=== PATIENT | female | born 1965 | race Caucasian/White ===

== ENCOUNTER → 2022-02-21 12:26 | Outpatient (CLI) | payer BC, SELFPAY ==
--- NOTE | ~2022-02-21 | XR_ITS ---
XR hand RT min 3V DATE: 02/21/2022 13:02 INDICATION: Bilateral hand pain TECHNIQUE: 3 views of right hand COMPARISON: None FINDINGS: There is polyarticular osteoarthritis including first carpometacarpal joint and to a greate r extent the interphalangeal joints, including the interphalangeal joint of the first digit and dista l phalangeal joint of the second digit in particular. No fracture or dislocation, periosteal reaction or bone destruction. No erosive change or chondrocalc inosis. IMPRESSION: Polyarticular osteoarthritis Reviewed, dictated and finalized at location B.
--- NOTE | ~2022-02-21 | XR_ITS ---
XR hand LT min 3V DATE: 02/21/2022 13:02 INDICATION: Bilateral hand pain TECHNIQUE: 3 views of left hand COMPARISON: None FINDINGS: There is a slightly anteriorly displaced transverse fracture of the tuft of the distal phal anx of the third digit. There is mild polyarticular osteoid arthritis including first carpometacarpal joint and multiple inte rphalangeal joints. No other fracture or dislocation, periosteal reaction or bone destruction, erosive change or chondroc alcinosis. IMPRESSION: Fracture of tuft of distal phalanx of third digit Mild polyarticular osteoarthritis Reviewed, dictated and finalized at location B.
--- NOTE | ~2022-02-21 | XR_ITS ---
XR_CERV2-3V_CR DATE: 02/21/2022 13:02 INDICATION: Chronic neck pain TECHNIQUE: AP, open-mouth and lateral views COMPARISON: None FINDINGS: There is reversal of cervical curvature which may be due to muscle spasm. There is minimal anterolisthesis at C2-3, C3-4 and C4-5. Prominent uncovertebral joint spurring is noted on the right at C5-6. There is mild degenerative disc disease at C4-5 and C6-7. There is moderately severe degenerative dis c disease at C5-6. C1 and C2 are normally aligned and the odontoid process is intact. No fracture or dislocation or lock ed facet or prevertebral soft tissue swelling is detected. IMPRESSION: Reversal of cervical curvature Minimal anterolisthesis at C2-3, C3-4 and C4-5 Multilevel degenerative disc disease, greatest at C5-6 centimeters and prominent uncovertebral joint spurring on the right at C5-6 Reviewed, dictated and finalized at Location A. Reviewed, dictated and finalized at location B. IMPRESSION: Reversal of cervical curvature Minimal anterolisthesis at C2-3, C3-4 and C4-5 Multilevel degenerative disc disease, greatest at C5-6 centimeters and prominen t uncovertebral joint spurring on the right at C5-6
== END ==
PROVIDERS: PCP Nurse Practitioner Family; Visit Provider Nurse Practitioner Family
DX: R20.2 Paresthesia of skin (principal); M19.041 Primary osteoarthritis, right hand; M19.042 Primary osteoarthritis, left hand; M50.322 Other cervical disc degeneration at C5-C6 level
CPT/HCPCS: 72040; 73130

== ENCOUNTER 2022-03-24 12:07 | Emergency (ER) | payer BC, SELFPAY ==
[2022-03-24] VITALS (13 sets, daily range): BP systolic 107–132; BP diastolic 68–96; PULSE 93–218; RESP 13–25; TEMP 36.9; O2SAT 98–100
--- NOTE | ~2022-03-24 | XR_ITS ---
EXAMINATION: XR chest 2V DATE: 03/24/2022 12:50 INDICATION: Shortness of breath. Hypertension. TECHNIQUE: PA and lateral views of the chest were obtained. COMPARISON: None FINDINGS: Mild linear discoid atelectasis/scarring at the lingula. No other airspace opacities, pulmonary edema , pleural effusion or pneumothorax. The cardiomediastinal silhouette is normal. Visualized bones and soft tissues are unremarkable. IMPRESSION: 1. Mild lingular discoid atelectasis/scarring. No other acute cardiopulmonary disease. Reviewed, dictated and finalized at location A. IMPRESSION: 1. Mild lingular discoid atelectasis/scarring. No other acute cardiopulmonary d isease.
--- NOTE | 2022-03-24 12:13 | ECG_ITS ---
Measurements Intervals [place] Rate: 122 P: 54 ID: 170 QRS: 8 QRSD: 105 T: 48 QT: 305 QTc: 436 Interpretive Statements SINUS TACHYCARDIA INCOMPLETE RIGHT BUNDLE BRANCH BLOCK COMPARED TO PRIOR EKG 03/24/22 12:20, SINUS TACHYCARDIA NOW PRESENT Electronically Signed On 03-24-2022 17:53:47 CDT by Macho Parham M.D.
[2022-03-24] MEDS: SODIUM CHLORIDE 0.9% IV 1,000 ML 999 ML IV CONT ×2 (12:21→13:38)
--- NOTE | 2022-03-24 12:24 | ED.ARRPALP ---
HPI - Arrhythmia/Palpitations General Chief Complaint: Arrhythmia/Palpitations Stated Complaint: palpations Time Seen by Provider: 03/24/22 12:13 History of Present Illness HPI narrative: 56-year-old female presenting to the emergency department for evaluation of 1 hour of tachycardia. Patient states that she had been drinking coffee and was cooking in the kitchen today when approximately 1 hour ago she had onset of rapid heart rate. Patient states she has had this happen previously but no definitive arrhythmia was caught on EKG or on a Holter monitor. Patient states approximately 10 years ago she had an episode and did wear an event monitor for 30 days with no abnormal events found. Patient states about 6 weeks ago she had an event where she felt that her rapid heart rate lasted a few hours at that time. Patient did have follow-up with her primary care physician. Outpatient EKG showed no acute abnormality. Patient did have an outpatient echocardiogram at [facility] and she is unsure of the results. Shortly after arrival to the emergency department patient had spontaneous conversion back to normal sinus/sinus tachycardia. Patient denied any associated chest pain with this. Related Data Allergies Allergy/AdvReac Type Severity Reaction Status Date / Time No Known Allergies Allergy Verified 03/24/22 12:13 Review of Systems Review of Systems: CONSTITUTIONAL: Denies fever, chills, or sweats. EYES: Denies visual changes, redness, or discharge. ENT: Denies rhinorrhea, congestion, sore throat, or otalgia. CARDIOVASCULAR: Rapid heart rate RESPIRATORY: Denies cough or dyspnea. GASTROINTESTINAL: Denies abdominal pain, nausea, vomiting, or diarrhea. GENITOURINARY: Denies dysuria or hematuria. SKIN: Denies rash or itching. MUSCULOSKELETAL: Denies back pain, joint pain, or myalgia. NEUROLOGIC: Denies headache, numbness, or weakness. Exam Narrative: APPEARANCE: Well appearing, no pain, no distress, well-nourished. HEAD: normocephalic, atraumatic. EYES: PERRLA/EOMI, conjunctivae clear. NOSE: Normal no drainage NECK: Supple. No adenopathy, no masses. RESPIRATORY: Airway patent, respirations nonlabored. Clear to auscultation bilaterally, no rales, rhonchi, wheezing. CARDIOVASCULAR: Patient arrived in SVT with a heart rate of 220. Patient converted to sinus tachycardia with a heart rate of 100-110 ABDOMINAL: Soft, nontender, nondistended, normal bowel sounds MUSCULOSKELETAL: Moves all extremities. Strength/ROM intact, No edema, No calf tenderness. NEURO: Alert. Cranial nerves II through XII intact. Grossly intact SKIN: Warm, dry. Normal Color Course Course Emergency Course: Patient's heart rate improved with rehydration. After her initial SVT and conversion back to sinus tachycardia patient's heart rate is further improved. Prior to discharge patient's heart rate is 95. Patient's blood pressure is 120/89. Patient denies any complaints at this time. Patient is afebrile with a minor leukocytosis of 12.1. Patient's lipase is mildly elevated at 383. Patient had no tenderness to palpation. Patient was encouraged to have close follow-up with her primary care physician and to seek a Holter monitor. Patient was advised to increase her water intake and to decrease her caffeine intake. All question concerns were addressed. Patient was well-appearing at time of discharge. Vital Signs Vital signs: Vital Signs Temperature 98.5 F 03/24/22 12:10 Pulse Rate 218 H 03/24/22 12:10 Respiratory Rate 18 03/24/22 12:10 Blood Pressure 132/68 03/24/22 12:10 Pulse Oximetry 98 03/24/22 12:10 Temperature 98.5 F 03/24/22 12:10 Pulse Rate 93 03/24/22 14:00 Respiratory Rate 18 03/24/22 14:00 Blood Pressure 107/93 H 03/24/22 13:46 Pulse Oximetry 100 03/24/22 14:00 MDM - Arrhythmia/Palpitations Lab Data Attestation: I reviewed the patient's lab results. Result diagrams: 03/24/22 12:22 03/24/22 12:22
--- NOTE | 2022-03-24 12:31 | ECG_ITS ---
Measurements Intervals [place] Rate: 206 P: [place]: 0 QRS: 38 QRSD: 112 T: 31 QT: 204 QTc: 378 Interpretive Statements SUPRAVENTRICULAR TACHYCARDIA INDETERMINATE AXIS RIGHT BUNDLE BRANCH BLOCK [120+ ms QRS DURATION, UPRIGHT V1, 40+ ms S IN I/aVL/V4/V5/V6] NO PREVIOUS ECG AVAILABLE FOR COMPARISON Electronically Signed On 03-25-2022 14:33:08 CDT by David Aguilar M.D.
[2022-03-24 12:36] LABS: Hematocrit 49.2 % (37.0-47.0); Hemoglobin 16.3 g/dL (12.0-15.0); Mean Corpuscular HGB Conc 33.1 g/dl (32-36); Mean Corpuscular Hemoglobin 31.7 pg (26-34); Mean Corpuscular Volume 95.7 fl (80-100); Mean Platelet Volume 10.5 fl (7.4-10.4); Platelet Count Result 253 k/mm3 (150-375); Red Blood Count 5.14 M/mm3 (4.2-5.4); Red Cell Distribution Width 13.1 % (11.5-14.5); White Blood Count 12.1 K/mm3 (4.5-10.0)
[2022-03-24 12:47] LABS: Partial Thromboplastin Time 26.4 SECONDS (22.3-36.8); Prothrombin Time 13.2 Seconds (11.1-14.7)
[2022-03-24 12:49] LABS: Alanine Aminotransferase 40 U/L (6-35); Albumin Level 4.6 g/dL (3.5-5.1); Alkaline Phosphatase 116 U/L (38-126); Anion Gap 13 mmol/L (8-16); Aspartate Amino Transferase 34 U/L (14-36); Bilirubin,Total 0.4 mg/dL (0.2-1.3); Blood Urea Nitrogen 18 mg/dL (7-17); Calcium 9.4 mg/dL (8.4-10.2); Carbon Dioxide 26 mmol/L (22-30); Chloride 102 mmol/L (98-107); Estimated CRCL calculation 63 ml/min; Estimated Glomerular Filt Rate > 60; Glucose 177 mg/dL (65-110); Lipase 383 U/L (23-300); Potassium 3.7 mmol/L (3.4-5.0); Sodium 141 mmol/L (137-145)
[2022-03-24 12:50] LABS: Magnesium 1.8 mg/dL (1.6-2.3)
[2022-03-24 12:54] LABS: Band Neutrophils Percent 3 % (0-6); Monocytes Absolute Manual 0.48 K/mm3 (0.1-0.90); Monocytes Percent Manual 4 % (3-9); Neutrophils Absolute Manual 6.41 K/mm3 (1.7-7.2); Neutrophils Percent Manual 50 % (46-73); Total Cells Counted 100
[2022-03-24 12:55] LABS: Platelet Estimate Adequate (Adequate); Schistocytes None Seen (NORMAL)
[2022-03-24 13:00] LABS: Troponin I < 0.012 ng/mL (0.000-0.034)
[2022-03-24 13:20] LABS: Thyroid Stimulating Hormone 0.372 uIU/mL (0.465-4.680)
== END 2022-03-24 14:29 | disposition home or self-care (01) ==
PROVIDERS: Emergency Medicine; Emergency Provider Emergency Medicine; PCP Nurse Practitioner Family
DX: I47.1 Supraventricular tachycardia (principal)
CPT/HCPCS: 36415; 71046; 80053; 83690; 83735; 84443; 84484; 85025; 85610; 85730; 93005; 96360; 96361; 99284; J0153; J7030

== ENCOUNTER → 2022-06-14 10:11 | Outpatient (CLI) | payer BC, SELFPAY ==
--- NOTE | ~2022-06-14 | MM_ITS ---
EXAMINATION: MM screening heriberto BI w devika HISTORY: Screening TECHNIQUE: Craniocaudal and mediolateral oblique 3-D tomosynthesis images were obtained and synthetic 2-D images were generated. CAD analysis was submitted and interpreted. COMPARISON: No prior mammogram is available for comparison at this institution. BREAST PARENCHYMAL COMPOSITION: There are scattered areas of fibroglandular density. FINDINGS: There is no evidence of suspicious mass, calcification, or architectural distortion to sugg est malignancy in either breast. There has been no suspicious interval change. IMPRESSION: 1. No mammographic evidence of malignancy. 2. Recommend routine screening mammography in one year. BI-RADS Category 1: Negative Reviewed, dictated and finalized at location A. AL TOWER OPERATOR
== END ==
PROVIDERS: PCP Nurse Practitioner Family; Visit Provider Nurse Practitioner Family
DX: Z12.31 Encounter for screening mammogram for malignant neoplasm of breast (principal)
CPT/HCPCS: 77063; 77067

== ENCOUNTER → 2022-06-21 12:47 | Outpatient (CLI) | payer BC, SELFPAY ==
--- NOTE | ~2022-06-21 | US_ITS ---
EXAMINATION: US thyroid DATE: 06/21/2022 13:03 INDICATION: Nontoxic goiter, unspecified. TECHNIQUE: Multiple ultrasound images of the thyroid were obtained. COMPARISON: None. FINDINGS: The right thyroid lobe measures 6.0 x 2.0 x 2.1 cm. The left thyroid lobe measures 6.3 x 2.1 x 1.8 c m. In the left thyroid lobe, there is a 13 mm solid, hypoechoic, wider than tall nodule with ill-def ined margin without echogenic foci (TI-RADS TR4). In the left thyroid lobe, there is a 6 mm solid, hy poechoic, wider than tall nodule with smooth margin without echogenic foci (TR4). In the left thyroid lobe, there is an 8 mm solid, hypoechoic, wider than tall nodule with ill-defined margin without ech ogenic foci (TR4). In the right thyroid lobe, there is a 6 mm solid, hypoechoic, wider than tall nodu le with irregular margin and punctate echogenic foci (TR5). IMPRESSION: 1. Multinodular goiter. Thyroid ultrasound is recommended in one year. Reviewed, dictated and finalized at location A. ICAL SERVICES ASSISTANT
== END ==
PROVIDERS: PCP Nurse Practitioner Family; Visit Provider Internal Medicine Endocrinology, Diabetes & Metabolism
DX: E04.2 Nontoxic multinodular goiter (principal)
CPT/HCPCS: 76536

== ENCOUNTER 2023-10-02 15:51 | Outpatient (CLI) | payer BC, SELFPAY ==
--- NOTE | ~2023-10-02 | CT_ITS ---
EXAMINATION: CT lung screening DATE: 10/02/2023 16:07 INDICATION: tobacco use TECHNIQUE: Computed tomography (CT) of the chest was performed without intravenous contrast. Addition al 3D reconstructions utilizing coronal maximum intensity projection (MIP) were performed. Automated exposure control and iterative reconstruction technique were employed. The dose-length product was 86 .52 mGy-cm. COMPARISON: None FINDINGS: Tiny calcified left lower lobe nodule consistent with old granulomatous disease. 6 x 3 mm triangular likely intrafissural lymph node along the left major fissure. 4 mm nodule at the junction of the ling ela and anterior segment of the left upper lobe. 2 mm nodule at the anterobasilar segment of the left lobe. No pneumonia, pulmonary edema or pleural effusion. Heart size is normal. No pericardial effusi on. Small amount of aortic valve calcification. Thoracic aorta is normal in caliber. No pathologicall y enlarged thoracic lymphadenopathy. Visualized upper abdomen is unremarkable. Moderate thoracic spon dylosis with chronic appearing mild anterior wedging at T6-T8. IMPRESSION: 1. Lung-RADS category 2: Benign appearance or behavior. Continue annual screening with noncontrast lo w-dose chest CT in 12 months. Reviewed, dictated and finalized at location B. IMPRESSION: 1. Lung-RADS category 2: Benign appearance or behavior. Continue annual screeni ng with noncontrast low-dose chest CT in 12 months.
== END 2023-10-02 15:52 ==
LOC: MICIMG 15:52
PROVIDERS: PCP Nurse Practitioner Family
DX: Z12.2 Encounter for screening for malignant neoplasm of respiratory organs (principal); Z87.891 Personal history of nicotine dependence
CPT/HCPCS: 71271

== ENCOUNTER 2023-10-30 14:12 | Outpatient (CLI) | payer BC, SELFPAY ==
--- NOTE | ~2023-10-30 | US_ITS ---
EXAMINATION: US thyroid DATE: 10/30/2023 14:41 INDICATION: Nontoxic single thyroid nodule TECHNIQUE: Multiple ultrasound images of the thyroid were obtained. COMPARISON: 06/21/2022 FINDINGS: The right thyroid lobe measures 6.1 x 1.6 x 2.3 cm. The left thyroid lobe measures 6.7 x 1.7 x 1.8 c m. No significant change in a 1.2 cm solid hypoechoic wider than tall nodule with ill-defined margin s and without echogenic foci in the left thyroid lobe. (TI-RADS 4, moderately suspicious , FNA if >=1 .5 cm, annual followup is >=1 cm). Also unchanged are a couple subcentimeter TI RADS 4 solid hypoecho ic nodules in the left thyroid lobe. Unchanged 6 mm solid hypoechoic nodule with ill-defined margins and internal echogenic foci in the right thyroid lobe. (TI-RADS 5, highly suspicious , FNA if >=1.0 c m, annual followup is >0.5 cm). There are also couple TI RADS 4 solid hypoechoic nodules without echo genic foci measuring 8 mm and 9 mm at the thyroid isthmus. IMPRESSION: 1. Multinodular goiter. Recommend continued annual ultrasound follow-up. Reviewed, dictated and finalized at location A.
--- NOTE | ~2023-10-30 | XR_ITS ---
EXAMINATION:XR_CERV2-3V_CR DATE: 10/30/2023 15:18 INDICATION: Cervical radiculopathy TECHNIQUE: AP, lateral, lateral swimmers and odontoid views of the cervical spine are provided. COMPARISON: 02/21/2022 FINDINGS: Straightening of the normal cervical lordosis one-2 mm retrolisthesis C5 on C6. Odontoid is intact. Normal atlantoaxial interval. Vertebral body heights are normal. Moderate disc height loss at C5-C6 w ith moderate left-sided and severe right-sided uncovertebral osteoarthritis. Mild disc height loss at C4-C5 with mild uncovertebral osteoarthritis at this level and on the right at C3-C4. Moderate to se irene facet osteoarthritis at the left side of the upper cervical spine with additional multilevel mil d cervical facet osteoarthritis. Prevertebral soft tissues are normal. Visualized apices of lungs are clear. IMPRESSION: 1. Moderate cervical spondylosis. Reviewed, dictated and finalized at location A.
== END 2023-10-30 14:13 ==
DX: M47.22 Other spondylosis with radiculopathy, cervical region (principal); E04.2 Nontoxic multinodular goiter
CPT/HCPCS: 72040; 76536

== ENCOUNTER 2024-01-30 10:29 | Outpatient (CLI) | payer BC, SELFPAY ==
--- NOTE | ~2024-01-30 | MM_ITS ---
EXAMINATION: MM screening heriberto BI w devika HISTORY: Screening TECHNIQUE: Craniocaudal and mediolateral oblique 3-D tomosynthesis images were obtained and synthetic 2-D images were generated. CAD analysis was submitted and interpreted. COMPARISON: 06/14/2022 BREAST PARENCHYMAL COMPOSITION: Not dense: There are scattered areas of fibroglandular density. FINDINGS: There is no evidence of suspicious mass, calcification, or architectural distortion to sugg est malignancy in either breast. There has been no suspicious interval change. IMPRESSION: 1. No mammographic evidence of malignancy. 2. Recommend routine screening mammography in one year. BI-RADS Category 1: Negative Reviewed, dictated and finalized at location B.
== END 2024-01-30 10:30 ==
DX: Z12.31 Encounter for screening mammogram for malignant neoplasm of breast (principal)
CPT/HCPCS: 77063; 77067